=== PATIENT | female | born 1940 ===

== ENCOUNTER 2019-02-16 08:34 | Outpatient (CLI) | payer MEDICAID, MEDICARE ==
[~2019-02-16 08:34] MED LIST: ACET325T21 PO; ATOR40TA78 PO; FLUT1AER INH; HYDR-3240 PO; LEVO500T47 PO; LORA0.5T PO; MIRT-34 PO; PANT40TA5 PO; TEMA7.5C PO; TIZA4TAB2 PO
== END 2019-02-16 23:59 | disposition home or self-care (01) ==
LOC: CFH 08:34
PROVIDERS: ATTEND Nurse Practitioner Family
DX: R14.0 Abdominal distension (gaseous) (principal)
CPT/HCPCS: 76700